=== PATIENT | female | born 1940 | race Caucasian/White ===

== ENCOUNTER 2021-09-16 16:15 | Observation (INO) | payer MEDICARE ==
[~2021-09-16] VITALS: Ht 162.6 cm; Wt 43.5 kg
[2021-09-16 17:05] LABS: HEMOGLOBIN 12.5 gm/dl (12.3-15.3); RED BLOOD COUNT 3.66 M/UL (4.00-5.10); WHITE BLOOD COUNT 8.1 K/UL (4.5-11.0)
[2021-09-17 06:27] LABS: HEMOGLOBIN 9.7 gm/dl (12.3-15.3); RED BLOOD COUNT 2.85 M/UL (4.00-5.10); WHITE BLOOD COUNT 4.9 K/UL (4.5-11.0)
[2021-09-17] MEDS ORDERED: DIGOX125 MCG PO (10:13)
[2021-09-17] MEDS ORDERED: DIVALPROEX SOD125 M1 PO (10:14)
[2021-09-17] MEDS ORDERED: HYDROCODON-ACE1 EAC2 PO (10:15)
[2021-09-17] MEDS ORDERED: PROTONIX 40 MG40 M1 PO (10:15)
[2021-09-17] MEDS ORDERED: HYDRALAZINE HCL50 MG PO (10:15)
[2021-09-17] MEDS ORDERED: PROCHLORPERAZINE5 MG PO (10:15)
[2021-09-17] MEDS ORDERED: SPIRONOLACTONE25 MG PO (10:16)
[2021-09-17] MEDS ORDERED: GLEEVEC100 MG PO (10:16)
[2021-09-17] MEDS ORDERED: ASPIRIN81 MG PO (10:17)
[2021-09-17] MEDS ORDERED: LOPRESSOR 25 MG25 MG PO (10:17)
[2021-09-18 06:48] LABS: HEMOGLOBIN 9.6 gm/dl (12.3-15.3); RED BLOOD COUNT 2.82 M/UL (4.00-5.10); WHITE BLOOD COUNT 4.5 K/UL (4.5-11.0)
== END 2021-09-18 14:14 | disposition home health service (06) ==
LOC: ER1 16:15 → MED SURG 4 20:39 → CDU 20:39 → MED SURG 4 22:16
PROVIDERS: Internal Medicine; Physician Assistant Medical; ADMIT Internal Medicine
DX: N17.9 Acute kidney failure, unspecified (principal); I12.9 Hypertensive chronic kidney disease with stage 1 through stage 4 chronic kidney disease, or unspecified chronic kidney disease; N18.30 Chronic kidney disease, stage 3 unspecified; R77.8 Other specified abnormalities of plasma proteins; K52.9 Noninfective gastroenteritis and colitis, unspecified; I25.2 Old myocardial infarction; I48.0 Paroxysmal atrial fibrillation; I44.7 Left bundle-branch block, unspecified; E78.5 Hyperlipidemia, unspecified; R63.4 Abnormal weight loss; E46 Unspecified protein-calorie malnutrition; D64.89 Other specified anemias; D69.6 Thrombocytopenia, unspecified; Z85.6 Personal history of leukemia; Z93.3 Colostomy status; Z88.8 Allergy status to other drugs, medicaments and biological substances; Z95.2 Presence of prosthetic heart valve; Z90.49 Acquired absence of other specified parts of digestive tract; Z66 Do not resuscitate; Z87.891 Personal history of nicotine dependence; Z20.822 Contact with and (suspected) exposure to COVID-19
CPT/HCPCS: ECHO; 36415; 80053; 80162; 81001; 82550; 82553; 83690; 83735; 83880; 84100; 84484; 85025; 85027; 85652; 86140; 92610; 93005; 93306; 96361; 96372; 96374; 96375; 96376; 97116; 97162; 97166; 97535; 99285; C9113; G0378; J1160; J1650; J2405; J2550; P9047; U0002